=== PATIENT | female | born 1965 | race Caucasian/White ===

== ENCOUNTER 2016-09-10 14:26 | Emergency (ER) | payer SELFPAY ==
[~2016-09-10] VITALS: Ht 165.1 cm; Wt 154.3 kg
[2016-09-10] MEDS ORDERED: ASPIRIN 81 MG TABLET CHEW PO ONE (15:30)
[2016-09-10] MEDS ORDERED: SODIUM CHLORIDE FLUSH 10ML SYR IVF ONE (15:30)
[2016-09-10] MEDS ORDERED: WARF10TA6 PO (16:29)
[2016-09-10] MEDS ORDERED: LEVO200T5 PO (16:29)
[2016-09-10] MEDS ORDERED: ASPIRIN 81 MG TABLET CHEW ONE (16:37)
[2016-09-10 16:45] LABS: HEMOGLOBIN 13.1 g/dL (11.7-16.4)
[2016-09-10 16:55] LABS: BLOOD UREA NITROGEN 10 mg/dL (7-18)
[2016-09-10 16:59] LABS: IS PT STATUS REG ER OR PRE ER? YES
[2016-09-10] MEDS ORDERED: HYDROmorphone 1 MG/ML, 1ML IM STA (17:32)
[2016-09-10] MEDS ORDERED: HYDROmorphone 1 MG/ML, 1ML ONE (17:36)
[2016-09-10] MEDS ORDERED: IBUPROFEN 200 MG TABLET ONE (17:37)
[2016-09-10 17:43] VITALS: BP 148/82
[2016-09-10] MEDS ORDERED: IBUPROFEN 200 MG TABLET PO ONE (18:00)
== END 2016-09-10 17:59 | disposition home or self-care (01) ==
LOC: ED 17:01
DX: I80.01 Phlebitis and thrombophlebitis of superficial vessels of right lower extremity (principal); E07.9 Disorder of thyroid, unspecified; Z88.0 Allergy status to penicillin; Z88.1 Allergy status to other antibiotic agents
CPT/HCPCS: 36415; 71010; 80048; 82040; 84484; 85025; 93005; 93971; 96372; 99285; J1170